=== PATIENT | male | born 1990 | race Two or more races ===

== ENCOUNTER 2020-10-22 08:12 | Emergency (ER) | payer MEDICAID ==
[~2020-10-22] VITALS: Ht 175.3 cm; Wt 82.6 kg
--- NOTE | 2020-10-22 08:24 | NUR ---
CHRIS [id number] "was at [employer] (construction) heavy machinery crushed hand" The left hand pain rates 10/10. Noted left hand swelling and laceration. Denies numbness/tingling in the extremity. Will continue to monitor the patient.
[2020-10-22] MEDS ORDERED: MORPHINE SULFATE INJ 2 MG/ML DISP.SYRIN ONE (08:27)
[2020-10-22] MEDS ORDERED: MORPHINE SULFATE INJ 4 MG/ML DISP.SYRIN ONE (08:27)
[2020-10-22] MEDS ORDERED: TDAP [DIPH/PERTUSSIS/TET] 0.5 ML VIAL IM ONE ×2 (08:28→08:30)
[2020-10-22] MEDS ORDERED: CEFAZOLIN 1 GM in IV D5W 50 ML IV ONE (08:30)
[2020-10-22] MEDS ORDERED: MORPHINE SULFATE INJ 2 MG/ML DISP.SYRIN IV ONE (08:30)
[2020-10-22] MEDS ORDERED: FENTANYL PF 100MCG/2ML AMPUL ONE ×2 (08:46→10:07)
[2020-10-22] MEDS ORDERED: BUPIVACAINE 0.5 % PF 150 MG/30 ML VIAL ONE (08:58)
[2020-10-22] MEDS ORDERED: BUPIVACAINE 0.5 % PF 150 MG/30 ML VIAL IJ ONE (09:00)
[2020-10-22] MEDS ORDERED: FENTANYL PF 100MCG/2ML AMPUL IV ONE ×2 (09:00→10:00)
--- NOTE | 2020-10-22 09:12 | NUR ---
PAGED DR. TORRES EXCHANGE.
--- NOTE | 2020-10-22 09:51 | NUR ---
CALLED [facility] FOR HIGHER LEVEL OF TRANSPORT. FAXED CLINICALS AND FACESHEET. AWAITING CALL BACK.
--- NOTE | 2020-10-22 10:34 | NUR ---
RECEIVED A CALL FROM TC FROM [facility] TRANSFER. AT THE MOMENT ORTHO IS AT CAPACITY.
--- NOTE | 2020-10-22 10:35 | NUR ---
CALLED [facility] AND FAXED CLINICAL INFO. AWAITING CALL BACK ON INFO.
--- NOTE | 2020-10-22 10:45 | NUR ---
CALLED [facility] AND SPOKE TO SHIRLEY ABOUT HIGHER LEVEL REQUEST. [facility] FAXED CLINICALS AND FACESHEET. AWAITING CALL BACK.
--- NOTE | 2020-10-22 11:02 | NUR ---
CALLED [facility] FOR HIGHER LEVEL OF CARE. FAXED CLINICALS AND FACESHEET. WOULD LIKE US TO FAX PHOTO OF X-RAY AND HAND TO [phone].
--- NOTE | 2020-10-22 11:09 | NUR ---
AJ FROM [facility] CALLED. AT THE MOMENT HAVE NO CAPACITY FOR TRANSFERS AT THIS TIME.
--- NOTE | 2020-10-22 11:26 | NUR ---
RECEIVED A CALL FROM [facility] TO CONNECT FOR [facility] TO PEER. PT HAS BEED ACCEPTED TO [facility] UNDER THE CARE OF DR. GIBBS. WILL CALL BACK WITH ACCEPTANCE INFORMATION.
--- NOTE | 2020-10-22 12:06 | NUR ---
RECEIVED A CALL FROM [facility] AND SPOKE TO RASHAD. AT THIS TIME THEY ARE UNABLE TO ACCEPT PATIENT DUE TO NO ACCEPTING MD.
--- NOTE | 2020-10-22 12:42 | NUR ---
RECEIVED A CALL FROM [facility] TO GIVE ACCEPTANCE INFO FOR [facility]. PT WILL BE GOING TO [address] GREEN PLEASE CALL TRANSFER LINE 30 MINUTES PRIOR TO [employer] TO BE CONNECTED TO RN FOR REPORT.
--- NOTE | 2020-10-22 12:50 | NUR ---
CALLED [facility] FOR TRANSPORT TO [facility]. ETA 45 MINUTES.
--- NOTE | 2020-10-22 13:27 | NUR ---
[facility] TRANSFER NUMBER [phone].
--- NOTE | 2020-10-22 14:16 | NUR ---
REPORT GIVEN TO NURSE ANDERS FROM [facility].
--- NOTE | 2020-10-22 14:39 | NUR ---
THE PATIENT GOT PICKED UP BY [facility]. THE PATIENT LEFT ER IN STABLE CONDITION.
[2020-10-22 14:40] VITALS: BP 112/64
== END 2020-10-22 14:40 | disposition short-term general hospital (02) ==
LOC: ER 08:16
DX: S62.242B Displaced fracture of shaft of first metacarpal bone, left hand, initial encounter for open fracture (principal); S62.391B Other fracture of second metacarpal bone, left hand, initial encounter for open fracture; W23.0XXA Caught, crushed, jammed, or pinched between moving objects, initial encounter; Y93.H3 Activity, building and construction; Y92.69 Other specified industrial and construction area as the place of occurrence of the external cause; Y99.0 Civilian activity done for income or pay
CPT/HCPCS: 12002; 64450; 73130; 87426; 90471; 90715; 96365; 96375; 96376; 99285; A6403; C9803; J0690; J2270 ×2; J3010 ×2; J3490; J7060